=== PATIENT | female | born 1995 | race Caucasian/White ===

== ENCOUNTER 2017-11-20 02:56 | Emergency (ER) | payer OTHER ==
[~2017-11-20] VITALS: Ht 157.5 cm; Wt 102.1 kg
[2017-11-20] MEDS ORDERED: ZOFRAN ODT4 MG SL (03:27)
[2017-11-20] MEDS ORDERED: BROMFED DM COU118 ML PO (03:27)
== END 2017-11-20 03:33 | disposition home or self-care (01) ==
LOC: FSED 02:56
DX: B34.9 Viral infection, unspecified (principal)
CPT/HCPCS: 87400; 99282